=== PATIENT | female | born 1940 | race Caucasian/White ===

== ENCOUNTER 2016-07-23 11:00 | Emergency (ER) | payer MEDICARE ==
[2016-07-23 11:29] VITALS: BP 161/79
[2016-07-23] MEDS ORDERED: PROVENTIL IH ONE (11:45)
[2016-07-23] MEDS ORDERED: ATROVENT IH ONE (11:46)
[2016-07-23 12:00] LABS: Hematocrit 37.9 % (30.3-42.9); Hemoglobin 12.2 gm/dl (10.1-14.3); Mean Corpuscular HGB Conc 32 % (30-34); Mean Corpuscular Hemoglobin 28 pg (28-32); Mean Corpuscular Volume 88 fl (79-97); Red Cell Distribution Width 14.5 % (13.2-15.2); White Blood Count 18.9 K/mm3 (4.5-11.0)
[2016-07-23 12:22] LABS: Alanine Aminotransferase 32 units/L (7-56); Albumin 3.8 g/dL (3.9-5); Albumin/Globulin Ratio 1.1 %; Alkaline Phosphatase 72 units/L (35-129); Anion Gap 15 mmol/L; BUN/Creatinine Ratio 21.25; Bilirubin,Total < 0.2 mg/dL (0.1-1.2); Blood Urea Nitrogen 17 mg/dL (7-17); Calcium 8.9 mg/dL (8.4-10.2); Carbon Dioxide 28 mmol/L (22-30); Chloride 100.5 mmol/L (98-107); Creatine Kinase 923 units/L (30-135); Creatine Kinase MB 11.4 ng/mL (0.0-4.0); Glucose 197 mg/dL (65-100); Sodium 139 mmol/L (137-145); Total Protein 7.2 g/dL (6.3-8.2)
[2016-07-23 13:03] LABS: Blastocytes % (Manual) 0 %
[2016-07-23 13:04] LABS: Anisocytosis 1+; Basophils % (Manual) 0 % (0.0-1.8); Diff Status Complete; Eosinophils % (Manual) 0 % (0.0-4.3); Ovalocytes 1+; Platelet Count 237 K/mm3 (140-440)
--- NOTE | 2016-07-24 17:54 | ED Elopement Review ---
ED Pt Elopement review - Results review Lab results: Laboratory Tests 07/23/16 07/23/16 11:44 11:44 WBC 18.9 H RBC 4.30 Hgb 12.2 Hct 37.9 MCV 88 MCH 28 MCHC 32 RDW 14.5 Plt Count 237 Add Manual Diff Complete Total Counted 100 Seg Neutrophils % [place] Molder Seg Neuts % (Manual) 96.0 H Band Neutrophils % 1.0 Lymphocytes % (Manual) 2.0 L Reactive Lymphs % (Man) 0 Monocytes % (Manual) 1.0 Eosinophils % (Manual) 0 Basophils % (Manual) 0 Metamyelocytes % 0 Myelocytes % 0 Promyelocytes % 0 Blast Cells % 0 Nucleated RBC % Not Reportable Seg Neutrophils # Man 18.1 H Band Neutrophils # 0.2 Lymphocytes # (Manual) 0.4 L Abs React Lymphs (Man) 0.0 Monocytes # (Manual) 0.2 Eosinophils # (Manual) 0.0 Basophils # (Manual) 0.0 Metamyelocytes # 0.0 Myelocytes # 0.0 Promyelocytes # 0.0 Blast Cells # 0.0 WBC Morphology Not Reportable Hypersegmented Neuts Not Reportable Hyposegmented Neuts Not Reportable Hypogranular Neuts Not Reportable Smudge Cells Not Reportable Toxic Granulation Not Reportable Toxic Vacuolation Not Reportable Dohle Bodies Not Reportable Pelger-Huet Anomaly Not Reportable [place] Rods Not Reportable Platelet Estimate Appears normal Clumped Platelets Not Reportable Plt Clumps, EDTA Not Reportable Large Platelets Not Reportable Giant Platelets Not Reportable Platelet Satelliting Not Reportable Plt Morphology Comment Not Reportable RBC Morphology Not Reportable Dimorphic RBCs Not Reportable Polychromasia Not Reportable Hypochromasia Not Reportable Poikilocytosis Not Reportable Anisocytosis 1+ Microcytosis Not Reportable Macrocytosis Not Reportable Spherocytes Not Reportable Pappenheimer Bodies Not Reportable Sickle Cells Not Reportable Target Cells Not Reportable Tear Drop Cells Not Reportable Ovalocytes 1+ Helmet Cells Not Reportable [place] Bodies Not Reportable [place] Rings Not Reportable [place] Cells Not Reportable Bite Cells Not Reportable Crenated Cell Not Reportable Elliptocytes Not Reportable Acanthocytes (Spur) Not Reportable Rouleaux Not Reportable Hemoglobin C Crystals Not Reportable Schistocytes Not Reportable Malaria parasites Not Reportable [place] Bodies Not Reportable Hem Pathologist Commnt No Sodium 139 Potassium 4.0 Chloride 100.5 Carbon Dioxide 28 Anion Gap 15 BUN 17 Creatinine 0.8 Estimated GFR > 60 BUN/Creatinine Ratio 21.25 Glucose 197 H Calcium 8.9 Total Bilirubin < 0.2 AST 51 H ALT 32 Alkaline Phosphatase 72 Total Creatine Kinase 923 H CK-MB (CK-2) 11.4 H CK-MB (CK-2) Rel Index 1.2 Troponin T < 0.010 Total Protein 7.2 Albumin 3.8 L Albumin/Globulin Ratio 1.1 - Call Back decision Pt Call Back Decision: Call pt to return to ED PANDA (leukocytosis and rhabdo)
== END 2016-07-23 19:05 | disposition left against medical advice (07) ==
LOC: ED 11:00
DX: R07.9 Chest pain, unspecified (principal); R06.00 Dyspnea, unspecified; J45.909 Unspecified asthma, uncomplicated; Z53.21 Procedure and treatment not carried out due to patient leaving prior to being seen by health care provider
CPT/HCPCS: 36415; 80053; 82550; 82553; 84484; 85007; 85025; 93005; 93010

== ENCOUNTER 2018-08-03 10:28 | Outpatient (CLI) | payer MEDICARE ==
--- NOTE | 2018-08-04 08:17 | PET Report ---
PET SB TO MT INITIAL: HISTORY: Initial staging of uterine cancer. Retroperitoneal lymphadenopathy. TECHNIQUE: 14.3 millicuries F-18 FDG was administered intravenously. Noncontrast CT images and PET images were obtained from the skull base to the proximal thighs. Fused images were reviewed on a workstation. The patient's blood glucose level measured 108. COMPARISON: CT abdomen pelvis without contrast dated 03/05/18. FINDINGS: BRAIN: physiologic FDG uptake in the imaged brain. NECK: physiologic FDG uptake. MEDIASTINUM: physiologic FDG uptake. 2-lead pacemaker device is in position. LUNGS: physiologic FDG uptake. PLEURA/PERICARDIUM: physiologic FDG uptake. THORACIC LYMPH NODES: physiologic FDG uptake. HEPATOBILIARY: physiologic FDG uptake. Mean liver SUV measures 4.3. Cholecystectomy. PANCREAS: physiologic FDG uptake. SPLEEN: physiologic FDG uptake. ADRENAL GLANDS: physiologic FDG uptake. KIDNEYS/RENAL COLLECTING SYSTEMS: physiologic FDG uptake. Stable 2.6 cm right ovarian cyst BOWEL/MESENTERY: physiologic FDG uptake. PELVIC VISCERA: physiologic FDG uptake. Hysterectomy changes are noted. ABDOMINAL/PELVIC LYMPH NODES: The previously described retroperitoneal lymph nodes are again identified and appear stable in number and slightly decreased in size by approximately 10-20%. Max SUV in the largest left periaortic lymph node measuring 1.2 cm equals 2.1. No new suspicious lymph nodes are identified. No pelvic adenopathy. MUSCULOSKELETAL: physiologic FDG uptake. Moderate thoracolumbar spondylosis is identified. No suspicious bony lesion or fracture. IMPRESSION: Essentially negative PET/CT. The previously described retroperitoneal adenopathy on CT abdomen pelvis dated 03/05/18 appears stable in number but slightly decreased in size. No hypermetabolic lymph nodes are detected. Max SUV of these lymph nodes measures 2.1. Followup is recommended.
== END 2018-08-03 10:29 | disposition home or self-care (01) ==
LOC: PET 10:28
PROVIDERS: ATTEND Internal Medicine Hematology & Oncology
DX: R59.0 Localized enlarged lymph nodes (principal); M47.815 Spondylosis without myelopathy or radiculopathy, thoracolumbar region; I10 Essential (primary) hypertension; J44.9 Chronic obstructive pulmonary disease, unspecified; Z90.710 Acquired absence of both cervix and uterus
CPT/HCPCS: 78815; 82962; A9552